=== PATIENT | male | born 1995 | race Caucasian/White ===

== ENCOUNTER 2020-06-05 21:38 | Emergency (ER) | payer OTHER ==
[~2020-06-05] VITALS: Ht 177.8 cm; Wt 67.8 kg
--- NOTE | 2020-06-05 22:15 | PHYS DOC ---
Past History Past Medical History: No Pertinent History Past Surgical History: Other Additional Past Surgical Histo: right knee surgery, testicular torsion, bilat ear tubes Alcohol Use: Occasionally General Adult EDM: Chief Complaint: LACERATION/AVULSION HPI: HPI: 24-year-old male presents with a laceration of the right middle finger. He was cleaning dishes and did not realize it was a knife in the sink. He came across a knife and lacerated 1 cm area of his third digit on the dorsal side. It has been difficult to control the bleeding. Patient's tetanus was recently given. He presents for suture repair. He has no other complaints at this time. Review of Systems: Review of Systems: Constitutional: Denies fever or chills Eyes: Denies change in visual acuity HENT: Denies nasal congestion or sore throat Respiratory: Denies cough or shortness of breath Cardiovascular: Denies chest pain or edema GI: Denies abdominal pain, nausea, vomiting, bloody stools or diarrhea : Denies dysuria Musculoskeletal: Denies back pain or joint pain Integument: Laceration right middle finger. Neurologic: Denies headache, focal weakness or sensory changes Endocrine: Denies polyuria or polydipsia Lymphatic: Denies swollen glands Psychiatric: Denies depression or anxiety Heart Score: Risk Factors: Risk Factors: DM, Current or recent (<one month) smoker, HTN, HLP, family history of CAD, obesity. Risk Scores: Score 0 - 3: 2.5% MACE over next 6 weeks - Discharge Home Score 4 - 6: 20.3% MACE over next 6 weeks - Admit for Clinical Observation Score 7 - 10: 72.7% MACE over next 6 weeks - Early Invasive Strategies Allergies: Allergies: Allergies Coded Allergies Type Severity Reaction Last Updated Verified No Known Drug Allergies 06/05/20 No Physical Exam: PE: Constitutional: Well developed, well nourished, no acute distress, non-toxic appearance. [] HENT: Normocephalic, atraumatic, bilateral external ears normal, oropharynx moist, no oral exudates, nose normal. [] Eyes: PERRLA, EOMI, conjunctiva normal, no discharge. [] Neck: Normal range of motion, no tenderness, supple, no stridor. [] Cardiovascular:Heart rate regular rhythm, no murmur [] Lungs & Thorax: Bilateral breath sounds clear to auscultation [] Abdomen: Bowel sounds normal, soft, no tenderness, no masses, no pulsatile masses. [] Skin: 1 cm laceration of the right middle finger [] Back: No tenderness, no CVA tenderness. [] Extremities: No tenderness, no cyanosis, no clubbing, ROM intact, no edema. [] Neurologic: Alert and oriented X 3, normal motor function, normal sensory function, no focal deficits noted. [] Psychologic: Affect normal, judgement normal, mood normal. [] Current Patient Data: Vital Signs: Vital Signs Date Time Temp Pulse Resp B/P (MAP) Pulse Ox O2 Delivery O2 Flow Rate FiO2 06/05/20 21:42 98.3 61 16 126/73 (90) 97 Room Air EKG: EKG: [] Radiology/Procedures: Radiology/Procedures: [] Course & Med Decision Making: Course & Med Decision Making Pertinent Labs and Imaging studies reviewed. (See chart for details) I repaired the patient's wound with sutures. See note below for more details. While I was injecting lidocaine and looking the patient's wound, he did have a syncopal episode. He remained in the bed last about 10 seconds. He was feeling nauseous prior to this event. We gave the patient 8 mg of Zofran ODT and a liter of normal saline. He is feeling much better. He is stable for discharge at this time. [] Dragon Disclaimer: Dragon Disclaimer: This electronic medical record was generated, in whole or in part, using a voice recognition dictation system. Laceration Repair Lac Repair .Indication: [] 1 cm V shaped laceration of the right middle finger Procedure: The patient gave verbal permission for suture repair of his laceration. Wound was thoroughly irrigated with normal saline under pressure. No foreign bodies were found. I anesthetized the wound with 2 cc of 1% lidocaine. After good anesthesia was achieved, I repaired the wound with 4-0 Ethilon suture. There were 4 sutures applied. There is good skin approximation. Bleeding was controlled. A clean dressing was applied. The patient stable for discharge at this time. Total repaired wound length: 1 cm Other Items: None The patient tolerated the procedure well. Complications: V-shaped wound Departure Departure: Impression: Primary Impression: Laceration of right middle finger Qualified Codes: S61.212A - Laceration without foreign body of right middle finger without damage to nail, initial encounter Disposition: 01 DC HOME SELF CARE/HOMELESS Condition: STABLE Referrals: PCP,UNKNOWN (PCP) Patient Instructions: Laceration Care, Adult, [id number] EDITH LAURA DO Jun 05, 2020 22:15
[2020-06-05] MEDS ORDERED: ONDANSETRON 4MG ODT 4TABLET STARTPACK. PO ONE (22:52)
[2020-06-05] MEDS ORDERED: ONDANSETRON ODT 4 MG TAB.RAPDIS PO ONE (23:15)
[2020-06-05] MEDS ORDERED: IV NORMAL SALINE 1,000ML 1,000 ML IV ONE (23:15)
[2020-06-05 23:51] VITALS: BP 104/54
== END 2020-06-05 23:52 | disposition home or self-care (01) ==
LOC: ER 21:38
DX: S61.212A Laceration without foreign body of right middle finger without damage to nail, initial encounter (principal); W26.0XXA Contact with knife, initial encounter; Y93.G1 Activity, food preparation and clean up; Y92.89 Other specified places as the place of occurrence of the external cause; Y99.8 Other external cause status
CPT/HCPCS: 12001; 96360; 99283; J7030; Q0162

== ENCOUNTER 2020-06-13 10:53 | Emergency (ER) | payer OTHER ==
[~2020-06-13] VITALS: Ht 177.8 cm; Wt 67.6 kg
[2020-06-13 11:00] VITALS: BP 115/67
--- NOTE | 2020-06-13 11:24 | PHYS DOC ---
Past History Past Medical History: No Pertinent History Past Surgical History: Other Additional Past Surgical Histo: right knee surgery, testicular torsion, bilat ear tubes Alcohol Use: None Adult General Chief Complaint Chief Complaint: SUTURE/STAPLE REMOVAL [place] [employer] HPI Patient is a healthy 24-year-old male who presents for suture removal. Reports x4 simple interrupted sutures to knuckle of right middle finger that have been in for 9 days, well-appearing without any issues, here for removal today Review of Systems Review of Systems Fourteen body systems of review of systems have been reviewed. See HPI for pertinent positives and negative responses, other pratt all other systems are negative, non-pertinent or non-contributory Allergies Allergies Allergies Coded Allergies Type Severity Reaction Last Updated Verified Penicillins Allergy Unknown 06/13/20 Yes Physical Exam Physical Exam Constitutional: Well developed, well nourished, no acute distress, non-toxic a ppearance. HENT: Normocephalic, atraumatic, bilateral external ears normal, oropharynx moist, no oral exudates, nose normal. Eyes: PERRLA, EOMI, conjunctiva normal, no discharge. Neck: Normal range of motion, no tenderness, supple, no stridor. Cardiovascular: Heart rate regular on monitor Lungs & Thorax: No respiratory distress Abdomen: Soft no tenderness Skin: Warm, dry, no erythema, no rash. X4 simple interrupted nonabsorbable sutures present on dorsal surface of right middle finger knuckle well-appearing without any palpable exudate Back: No tenderness, no CVA tenderness. Extremities: No tenderness, no cyanosis, no clubbing, ROM intact, no edema. Neurologic: Alert and oriented X 3, grossly normal motor & sensory function, no focal deficits noted. Psychologic: Affect normal, judgement normal, mood normal. Current Patient Data Vital Signs Vital Signs Date Time Temp Pulse Resp B/P (MAP) Pulse Ox O2 Delivery O2 Flow Rate FiO2 06/13/20 11:00 97.7 75 20 115/67 (83) 100 Room Air EKG EKG [] Radiology/Procedures Radiology/Procedures [] Heart Score Risk Factors: Risk Factors: DM, Current or recent (<one month) smoker, HTN, HLP, family history of CAD, obesity. Risk Scores: Risk Factors: DM, Current or recent (<one month) smoker, HTN, HLP, family history of CAD, obesity. Course & Med Decision Making Course & Med Decision Making Well-appearing nontoxic patient here for suture removals, tolerated this without issues No signs or symptoms of infection, no complications Discharge instructions given with outpatient follow-up advised for routine continuity of care. Patient discharged home in stable condition [place] Disclaimer Dragon Disclaimer This electronic medical record was generated, in whole or in part, using a voice recognition dictation system. Departure Departure: Impression: Primary Impression: Encounter for removal of sutures Disposition: 01 DC HOME SELF CARE/HOMELESS Condition: STABLE Referrals: PCP,NO (PCP) Patient Instructions: Suture Removal BRENDA PIZANO DO Jun 13, 2020 11:24
== END 2020-06-13 11:30 | disposition home or self-care (01) ==
LOC: ER 10:53
DX: S61.212D Laceration without foreign body of right middle finger without damage to nail, subsequent encounter (principal); Z88.0 Allergy status to penicillin; Z98.890 Other specified postprocedural states; X58.XXXD Exposure to other specified factors, subsequent encounter
CPT/HCPCS: 99281